=== PATIENT | female | born 1945 | race Caucasian/White ===

== ENCOUNTER → 2016-10-29 | Outpatient (CLI) | payer MEDICARE ==
--- NOTE | 2016-10-29 08:59 | REP ---
Chest two views HISTORY: Cough Comparison: 09/23/2014 The lungs are clear. The heart is normal in size. The pulmonary vasculature is normal in appearance. The bony structure is intact. IMPRESSION: No acute disease. Signed by Víctor Patel MD 10/29/2016 08:51 A
== END ==
LOC: M LAB 08:29
PROVIDERS: ATTEND Nurse Practitioner Adult Health
DX: R05 Cough (principal)

== ENCOUNTER → 2016-10-31 | Outpatient (CLI) | payer MEDICARE ==
--- NOTE | 2016-11-01 08:57 | DEXA ---
AP SPINE L1 - L4 1.648 3.7 5.7 LT FEMUR TOTAL 0.938 -0.5 1.2 RT FEMUR TOTAL 0.954 -0.4 1.3 TOTAL BODY TOTAL OTHER DUAL FEMUR FRAX* ASSESSMENT Risk factors: None. 10 year probability of fracture Major osteoporotic fracture 11.2 % Hip fracture 2.1 % COMMENTS: Normal bone densitometry of the spine. There is low bone density of the hips. The density of the spine has increased 20.8% since 2007. The density of the left hip has decreased 5.3% since 2007. The density of the right hip has decreased 5.1% since 2007. The increased density of the spine does represent a significant change. The decreased density of the left hip does represent a significant change. The decreased density of the right hip does represent a significant change. FOLLOW-UP: Recommendation for the next bone density exam: 2 years. CHEIKH
== END ==
LOC: M WHC 08:00
PROVIDERS: ATTEND Nurse Practitioner Adult Health
DX: M85.852 Other specified disorders of bone density and structure, left thigh (principal); Z78.0 Asymptomatic menopausal state

== ENCOUNTER → 2017-03-20 | Outpatient (CLI) | payer MEDICARE ==
--- NOTE | 2017-03-26 16:11 | REPMRS ---
Patient History The patient states she had a clinical breast exam in January 2017. Patient is postmenopausal and is nulliparous. Family history of breast cancer in maternal aunt at age 50 or over. Took hormonal contraceptives for 6 years. Took unspecified hormones for 2 months. Digital Mammo Screening Bilat: March 20, 2017 - Exam #: [id number] Bilateral CC and MLO view(s) were taken. Technologist: Oksana Corado, Technologist Prior study comparison: March 2016, right breast diagnostic unilateral mammo, performed at [facility]. March 01, 2016, right breast digital mammo diagnostic unilateral performed at [facility]. February 21, 2016, bilateral digital mammo screening bilat performed at [facility]. FINDINGS: There are scattered fibroglandular densities. There has been no change in the appearance of the mammogram from the prior studies. There is a mild amount of residual fibroglandular tissue which is fairly symmetric. There is no interval development of dominant mass, architectural distortion, or clustered microcalcification suggestive of malignancy. ASSESSMENT: BI-RADS/ACR category 1 mammogram. Negative. Recommendation Routine screening mammogram in 1 year (for women over age 40). This mammogram was interpreted with the aid of an FDA-approved computer-aided dectection system. Electronically Signed By: Bladimir Mata MD 03/26/17 [id number]
== END ==
LOC: M RAD 08:18
PROVIDERS: ATTEND Obstetrics & Gynecology
DX: Z12.31 Encounter for screening mammogram for malignant neoplasm of breast (principal)

== ENCOUNTER 2017-06-04 09:01 | Day surgery (SDC) | payer MEDICARE ==
[~2017-06-04] VITALS: Ht 139.7 cm; Wt 51.3 kg
[~2017-06-04 09:01] MED LIST: AMLO5TAB2 PO; ASPI1TAB PO; ATOR1TAB19 PO; CALCTAB7 PO; CO Q100C10 PO; GLUC1CAP10 PO; LOSA50TA5 PO; LR 1,000 ML IV ONE; OMEGCAP9 PO; VITA1CAP7 PO
[2017-06-04] MEDS ORDERED: PROPOFOL 200 MG/20 ML VIAL As Ordered ONE (10:10)
[2017-06-04] MEDS ORDERED: LIDOCAINE 2% INJ 100 MG/5 ML SDV (FOR ANES.) As Ordered ONE (10:10)
[2017-06-04] MEDS ORDERED: ePHEDrine SULFATE 25 MG/5 ML(5MG/ML) SYRINGE As Ordered ONE (10:15)
--- NOTE | 2017-06-04 10:43 | ROOR ---
Patient Name: Sheba Moreno Procedure Date: 06/04/2017 10:04 AM Date of : 1945 Age: 72 Room: [facility] Gender: Female Note Status: Finalized Procedure: Colonoscopy Indications: Screening for colorectal malignant neoplasm, Last colonoscopy: 2003 Providers: Kory Corey MD Referring MD: Genet Mooney NP Requesting Provider: Medicines: Monitored Anesthesia Care Complications: No immediate complications. Procedure: Pre-Anesthesia Assessment: - Prior to the procedure, a History and Physical was performed, and patient medications and allergies were reviewed. The patient is competent. The risks and benefits of the procedure and the sedation options and risks were discussed with the patient. All questions were answered and informed consent was obtained. Patient identification and proposed procedure were verified by the physician, the nurse and the anesthesiologist in the procedure room. Mental Status Examination: alert and oriented. Airway Examination: normal oropharyngeal airway and neck mobility. CV Examination: regular rate and rhythm. Prophylactic Antibiotics: The patient does not require prophylactic antibiotics. Prior Anticoagulants: The patient has taken no previous anticoagulant or antiplatelet agents. ASA Grade Assessment: II - A patient with mild systemic disease. After reviewing the risks and benefits, the patient was deemed in satisfactory condition to undergo the procedure. The anesthesia plan was to use monitored anesthesia care (MAC). Immediately prior to administration of medications, the patient was re-assessed for adequacy to receive sedatives. The heart rate, respiratory rate, oxygen saturations, blood pressure, adequacy of pulmonary ventilation, and response to care were monitored throughout the procedure. The physical status of the patient was re-assessed after the procedure. The Colonoscope was introduced through the anus and advanced to the cecum, identified by the appendiceal orifice. The colonoscopy was performed without difficulty. The patient tolerated the procedure well. The quality of the bowel preparation was excellent. Findings: The perianal and digital rectal examinations were normal. The colon (entire examined portion) was moderately tortuous. Advancing the scope required withdrawing and reinserting the scope. The entire examined colon appeared normal. Impression: - Tortuous colon. - The entire examined colon is normal. - No specimens collected. Recommendation: - Discharge patient to home. - Resume previous diet. - Continue present medications. - Repeat colonoscopy in 10 years for screening purposes. Kory Corey MD 06/04/2017 10:43:14 AM Number of Addenda: 0 Note Initiated On: 06/04/2017 10:04 AM Estimated Blood Loss: Estimated blood loss: none.
[2017-06-04 11:16] VITALS: BP 120/80
== END 2017-06-04 11:25 | disposition home or self-care (01) ==
LOC: M OPP 09:01
PROVIDERS: ATTEND Surgery
DX: Z12.11 Encounter for screening for malignant neoplasm of colon (principal); Q43.8 Other specified congenital malformations of intestine; I10 Essential (primary) hypertension; E78.00 Pure hypercholesterolemia, unspecified; M19.90 Unspecified osteoarthritis, unspecified site; R09.82 Postnasal drip; Z79.82 Long term (current) use of aspirin; Z79.899 Other long term (current) drug therapy; Z87.891 Personal history of nicotine dependence; Z88.0 Allergy status to penicillin

== ENCOUNTER → 2018-04-11 | Outpatient (CLI) | payer MEDICARE | LOC: M RAD 09:44 | DX: Z12.31 Encounter for screening mammogram for malignant neoplasm of breast (principal); Z92.0 Personal history of contraception; Z92.29 Personal history of other drug therapy | CPT/HCPCS: 77067 ==

== ENCOUNTER → 2019-04-07 | Outpatient (CLI) | payer MEDICARE ==
[~2019-04-07] MED LIST changes: -AMLO5TAB2 PO; +AMLO5TAB6 PO; -ASPI1TAB PO; +ASPI81TA26 PO; +D-3-50003 PO; -LR 1,000 ML IV ONE; -VITA1CAP7 PO
--- NOTE | 2019-04-07 12:38 | REP ---
PA and lateral chest: Comparison is 10/01/2017. The lung armstrong are clear. The cardiac size is normal. The evelin, mediastinum, and skeletal structures are unremarkable. There is bilateral advanced deforming shoulder arthropathy. This is unchanged. Impression: Negative PA and lateral chest except for chronic deforming bilateral shoulder arthropathy There is no interval change. Electronically Signed by Yuri Salazar MD 04/07/2019 12:30 P
== END ==
LOC: M RAD 11:46
PROVIDERS: ATTEND Nurse Practitioner Adult Health
DX: R05 Cough (principal)

== ENCOUNTER → 2019-07-23 | Outpatient (CLI) | payer MEDICARE ==
--- NOTE | 2019-07-23 09:40 | REP ---
BILATERAL SCREENING DIGITAL MAMMOGRAM WITH 3D TOMOSYNTHESIS: There are no palpable abnormalities or other breast complaints. The the patient states she had a clinical breast examination the July,. The the patient states she performs self-breast examinations six times per year. The Tyrer-Cuzick Score is: 7.3% . Comparison is 02/08/2015. There are scattered areas of fibroglandular density. There is no dominant mass, micro calcific cluster or architectural distortion that would indicate malignancy. There are no additional findings on 3D tomosynthesiss. There is no change from the prior study. Impression: BIRADS/ACR category 1 mammogram. Negative. Recommendation: Routine annual screening mammography. This mammogram was interpreted with the aid of a FDA approved computer-aided detection system. A. Negative mammogram reports should not delay biopsy if a dominant or clinically suspicious mass is present. B. Not all breast cancers are identified by mammography or tomosynthesis. C. Adenosis and dense breasts may obscure an underlying neoplasm. Patient letter M1. Electronically Signed by Yuri Salazar MD 07/23/2019 09:32 A
== END ==
LOC: M WHC 07:27
PROVIDERS: ATTEND Obstetrics & Gynecology
DX: Z12.31 Encounter for screening mammogram for malignant neoplasm of breast (principal)

== ENCOUNTER → 2020-01-18 | Outpatient (CLI) | payer SELFPAY ==
[~2020-01-18] MED LIST changes: +AMLO1TAB24 PO; -AMLO5TAB6 PO; +CALC-211 PO; -CALCTAB7 PO
== END ==
LOC: M LABSMTC 09:46
PROVIDERS: ATTEND Pediatrics
DX: Z20.828 Contact with and (suspected) exposure to other viral communicable diseases (principal); Z11.59 Encounter for screening for other viral diseases

== ENCOUNTER → 2020-03-29 | Outpatient (CLI) | payer MEDICARE ==
--- NOTE | 2020-04-06 13:02 | REP ---
CHEST X-RAY: 2-VIEWS HISTORY: Cough. COMPARISON: Chest x-ray 04/07/2019. FINDINGS: There is some straightening of the normal thoracic kyphosis and a dextroconvex curve is seen in the lower thoracic spine as before. The heart is near the upper range of normal in size. Cardiothoracic ratio is measured at 46.9%. Heart size is felt to be unchanged. The aorta is tortuous. Pulmonary vasculature is not increased. Lung armstrong are clear. The pleural angles are sharp. IMPRESSION: No active disease. MTDD
== END ==
LOC: M RAD 12:03
PROVIDERS: ATTEND Nurse Practitioner Adult Health
DX: R05 Cough (principal)

== ENCOUNTER → 2020-07-25 | Outpatient (CLI) | payer MEDICARE ==
--- NOTE | 2020-07-25 09:47 | REPMRS ---
Patient History The patient states she had a clinical breast exam in 05/2020 Patient is postmenopausal and is nulliparous. Family history of breast cancer at age 50 or over in maternal aunt. Took hormonal contraceptives for 6 years. Took unspecified hormones for 2 months. Digital Woman Screen Mammo: July 25, 2020 - Exam #: [id number] Bilateral CC and MLO view(s) were taken. Technologist: Christiana Benavidez, Technologist Prior study comparison: July 23, 2019, bilateral digital woman screen mammo performed at [facility]. April 11, 2018, bilateral digital mammo screening bilat, performed at [facility]. March 20, 2017, bilateral digital mammo screening bilat, performed at [facility]. FINDINGS: There are scattered fibroglandular densities. The Volpara volumetric breast density category is:B. There has been no change in the appearance of the mammogram from the prior studies. There is a mild amount of scattered fibroglandular density which is fairly symmetric. There is no interval development of dominant mass, architectural distortion, or grouped microcalcification suggestive of malignancy. 3-D tomosynthesis shows no additional findings. Assessment: BI-RADS/ACR category 1 mammogram. Negative Mammogram. Recommendation Routine screening mammogram of both breasts in 1 year (for women over age 40). This patient's [facility] Lifetime Breast Cancer Risk is estimated at 6.7 %. This mammogram was interpreted with the aid of an FDA-approved computer-aided dectection system. Electronically Signed By: Bladimir Mata MD 07/25/20 0946
== END ==
LOC: M WHC 07:56
PROVIDERS: ATTEND Obstetrics & Gynecology
DX: Z12.31 Encounter for screening mammogram for malignant neoplasm of breast (principal); Z92.0 Personal history of contraception

== ENCOUNTER → 2021-03-22 | Outpatient (REF) | payer MEDICARE | LOC: M LAB REF 16:16 | PROVIDERS: ATTEND Nurse Practitioner Adult Health | DX: M13.80 Other specified arthritis, unspecified site (principal) ==

== ENCOUNTER → 2021-08-07 | Outpatient (CLI) | payer MEDICARE | LOC: M WHC 08:49 | PROVIDERS: ATTEND Obstetrics & Gynecology | DX: Z12.31 Encounter for screening mammogram for malignant neoplasm of breast (principal); R92.1 Mammographic calcification found on diagnostic imaging of breast ==

== ENCOUNTER → 2021-08-10 | Outpatient (CLI) | payer MEDICARE | LOC: M WHC 08:53 | PROVIDERS: ATTEND Obstetrics & Gynecology | DX: Z12.31 Encounter for screening mammogram for malignant neoplasm of breast (principal); R92.1 Mammographic calcification found on diagnostic imaging of breast | CPT/HCPCS: 77065; G0279 ==

== ENCOUNTER → 2021-08-31 | Outpatient (CLI) | payer MEDICARE ==
[~2021-08-31] MED LIST changes: +**SFHN** LIDOCAINE 1% MDV 20ML VIAL ONE; +**SFHN** SODIUM BICARBONATE 8.4% 50MEQ 50ML VIAL ONE; +EQL50TAB2 PO; +RA T500C2 PO
[2021-08-31 13:39] VITALS: BP 130/72
== END ==
LOC: M WHCPRO 12:43
PROVIDERS: ATTEND Obstetrics & Gynecology
DX: N60.11 Diffuse cystic mastopathy of right breast (principal); D24.1 Benign neoplasm of right breast; N63.11 Unspecified lump in the right breast, upper outer quadrant; R92.2 Inconclusive mammogram

== ENCOUNTER → 2022-05-28 | Outpatient (CLI) | payer MEDICARE ==
[~2022-05-28] MED LIST changes: -**SFHN** LIDOCAINE 1% MDV 20ML VIAL ONE; -**SFHN** SODIUM BICARBONATE 8.4% 50MEQ 50ML VIAL ONE
== END ==
LOC: M RAD 14:34
PROVIDERS: ATTEND Internal Medicine
DX: R05.9 Cough, unspecified (principal)

== ENCOUNTER → 2022-08-21 | Outpatient (CLI) | payer MEDICARE, OTHER | LOC: M WHC 12:18 | PROVIDERS: ATTEND Nurse Practitioner Family | DX: Z01.419 Encounter for gynecological examination (general) (routine) without abnormal findings (principal); Z12.31 Encounter for screening mammogram for malignant neoplasm of breast; Z13.820 Encounter for screening for osteoporosis; Z12.11 Encounter for screening for malignant neoplasm of colon | CPT/HCPCS: 77063; 77067; G0101 ==

== ENCOUNTER → 2023-09-13 | Outpatient (CLI) | payer MEDICARE | LOC: M WHC 08:33 | PROVIDERS: ATTEND Internal Medicine | DX: Z12.31 Encounter for screening mammogram for malignant neoplasm of breast (principal) ==

== ENCOUNTER → 2024-01-13 | Outpatient (CLI) | payer MEDICARE | LOC: M RAD 10:03 | PROVIDERS: ATTEND Internal Medicine | DX: R05.9 Cough, unspecified (principal); M41.85 Other forms of scoliosis, thoracolumbar region; M47.812 Spondylosis without myelopathy or radiculopathy, cervical region; M19.011 Primary osteoarthritis, right shoulder; M19.012 Primary osteoarthritis, left shoulder ==

== ENCOUNTER → 2024-05-11 | Outpatient (CLI) | payer MEDICARE | LOC: M WHC 08:54 | PROVIDERS: ATTEND Internal Medicine | DX: M85.852 Other specified disorders of bone density and structure, left thigh (principal); Z13.820 Encounter for screening for osteoporosis; M85.851 Other specified disorders of bone density and structure, right thigh ==

== ENCOUNTER → 2024-10-26 | Outpatient (CLI) | payer MEDICARE | LOC: M WHC 14:35 | PROVIDERS: ATTEND Internal Medicine | DX: Z12.31 Encounter for screening mammogram for malignant neoplasm of breast (principal); R92.323 Mammographic fibroglandular density, bilateral breasts ==